=== PATIENT | male | born 1950 | race Caucasian/White ===

== ENCOUNTER → 2023-07-19 06:47 | Outpatient (REF) | payer MEDICARE, SELFPAY ==
[2023-07-19 09:33] LABS: Urine Protein 19 mg/dl (0-12)
[2023-07-22 00:30] LABS: 24 Hour Urine Total Volume Random mL; Urine Collection Length Random hr; Urine Free Kappa Light Chains 11.63 mg/L (0.00-32.90); Urine Free Lambda Light Chains 1.66 mg/L (0.00-3.79)
== END ==
LOC: REG 06:47
PROVIDERS: ATTENDING PHYSICIAN Internal Medicine; REFERRING PHYSICIAN Internal Medicine Hematology & Oncology
DX: D47.02 Systemic mastocytosis (principal); Z00.00 Encounter for general adult medical examination without abnormal findings; Z78.9 Other specified health status; D44.5 Neoplasm of uncertain behavior of pineal gland
CPT/HCPCS: 83521; 84156; 86335

== ENCOUNTER → 2023-08-01 08:37 | Outpatient (REF) | payer MEDICARE, SELFPAY | LOC: RAD 08:37 | PROVIDERS: ATTENDING PHYSICIAN Internal Medicine | DX: R09.89 Other specified symptoms and signs involving the circulatory and respiratory systems (principal) | CPT/HCPCS: 71046 ==

== ENCOUNTER → 2023-08-19 08:36 | Outpatient (REF) | payer MEDICARE, SELFPAY ==
[2023-08-19 11:47] LABS: Urine Protein 14 mg/dl (0-12)
[2023-08-19 13:08] LABS: 24 Hour Urine Total Volume 2000 ml
[2023-08-21 12:42] LABS: 24 Hour Urine Total Volume 2000 mL; Urine Collection Length 24 hr; Urine Free Kappa Excretion/Day 6.28 mg/d; Urine Free Kappa Light Chains 3.14 mg/L (0.00-32.90); Urine Free Lambda Light Chains <0.74 mg/L (0.00-3.79)
== END ==
LOC: REG 08:36
PROVIDERS: ATTENDING PHYSICIAN Internal Medicine; REFERRING PHYSICIAN Internal Medicine Hematology & Oncology
DX: D47.2 Monoclonal gammopathy (principal)
CPT/HCPCS: 81050; 83521; 84156; 86335

== ENCOUNTER → 2023-09-25 06:58 | Outpatient (REF) | payer MEDICARE, SELFPAY ==
[2023-09-25 07:35] LABS: % Basophils 1.3 % (0-2); % Eosinophils 2.5 % (0-6); % Immature Granulocytes 0.1 % (0-0.5); % Lymphocytes 32.5 % (20.5-51.1); % Neutrophils 57.6 % (42.2-75.2); Absolute Basophils 0.1 10^3/uL (0-0.2); Absolute Eosinophils 0.2 10^3/uL (0-0.7); Absolute Lymphocytes 2.2 10^3/uL (1.2-3.4); Absolute Monocytes 0.4 10^3/uL (0.1-0.6); Absolute Neutrophils 3.9 10^3/uL (1.4-6.5); Hematocrit 44.8 % (39.0-52.0); Hemoglobin 15.4 g/dL (13.0-18.0); Mean Corp Hgb Conc. 34.4 g/dL (33.0-37.0); Mean Corpuscular Hgb 32.2 pg (27.0-31.0); Mean Corpuscular Volume 93.5 fL (80.0-94.0); Nucleated Red Blood Cells % 0 % (-); Platelet Count 174 10^3/uL (130-400); Red Blood Cell Count 4.79 10^6/uL (4.70-6.10); Red Cell Dist. Width 12.9 % (11.5-14.5); White Blood Cell Count 6.8 10^3/uL (4.8-10.8)
[2023-09-25 09:50] LABS: ALT (SGPT) 27 U/L (0-50); AST (SGOT) 26 U/L (17-59); Albumin 4.1 g/dl (3.5-5.0); Alkaline Phosphatase 63 U/L (38-126); Blood Urea Nitrogen 29 mg/dl (9-20); Calcium 9.2 mg/dl (8.4-10.2); Carbon Dioxide 26 mmol/L (22-30); Chloride 109 mmol/L (98-107); Glucose 94 mg/dl (70-99); Potassium 4.2 mmol/L (3.5-5.1); Sodium 140 mmol/L (135-145); Total Bilirubin 0.4 mg/dl (0.2-1.3); Total Protein 7.1 g/dl (6.3-8.2); eGFR > 60.00
[2023-09-27 14:40] LABS: Albumin 3.85 g/dL (3.75-5.01); Alpha 1 Globulin 0.29 g/dL (0.19-0.46); Free Kappa Light Chains,Quant 81.12 mg/L (3.30-19.40); Free Lambda Light Chains,Quant 14.64 mg/L (5.71-26.30); IgA 125 mg/dL (68-408); IgG 1251 mg/dL (768-1632); IgM 45 mg/dL (35-263); Immunofixation Electrophoresis IFE Done; Kappa/Lambda Fr Light Ratio 5.54 (0.26-1.65)
== END ==
LOC: REG 06:58
PROVIDERS: ATTENDING PHYSICIAN Internal Medicine Hematology & Oncology; FAMILY PHYSICIAN Internal Medicine
DX: D47.2 Monoclonal gammopathy (principal)
CPT/HCPCS: 36415; 80053; 82784; 83521; 84155; 84165; 85025; 86334

== ENCOUNTER → 2023-09-26 12:22 | Outpatient (REF) | payer MEDICARE, SELFPAY | LOC: RAD 12:22 | PROVIDERS: ATTENDING PHYSICIAN Internal Medicine | DX: I10 Essential (primary) hypertension (principal); E78.5 Hyperlipidemia, unspecified; R09.89 Other specified symptoms and signs involving the circulatory and respiratory systems | CPT/HCPCS: 93922; 93925 ==

== ENCOUNTER → 2023-12-16 08:40 | Outpatient (REF) | payer MEDICARE, SELFPAY ==
[2023-12-16 10:40] LABS: ALT (SGPT) 29 U/L (0-50); AST (SGOT) 28 U/L (17-59); Alkaline Phosphatase 59 U/L (38-126); Blood Urea Nitrogen 32 mg/dl (9-20); Calcium 9.3 mg/dl (8.4-10.2); Carbon Dioxide 27 mmol/L (22-30); Glucose 112 mg/dl (70-99); Potassium 4.3 mmol/L (3.5-5.1); Sodium 142 mmol/L (135-145); Total Bilirubin 0.6 mg/dl (0.2-1.3); Total Protein 6.9 g/dl (6.3-8.2); eGFR > 60.00
[2023-12-16 10:46] LABS: Chloride 107 mmol/L (98-107)
[2023-12-16 10:57] LABS: Vitamin D, 25-OH*** 50.7 ng/mL (30-80)
[2023-12-16 11:24] LABS: Vitamin B12 482 pg/ml (239-931)
[2023-12-16 12:53] LABS: % Basophils 1.1 % (0-2); % Eosinophils 1.8 % (0-6); % Immature Granulocytes 0.1 % (0-0.5); % Lymphocytes 26.9 % (20.5-51.1); % Monocytes 6.4 % (1.7-9.3); % Neutrophils 63.7 % (42.2-75.2); Absolute Basophils 0.1 10^3/uL (0-0.2); Absolute Eosinophils 0.1 10^3/uL (0-0.7); Absolute Monocytes 0.5 10^3/uL (0.1-0.6); Absolute Neutrophils 4.6 10^3/uL (1.4-6.5); Hematocrit 42.5 % (39.0-52.0); Hemoglobin 14.7 g/dL (13.0-18.0); Mean Corp Hgb Conc. 34.6 g/dL (33.0-37.0); Mean Corpuscular Hgb 31.5 pg (27.0-31.0); Mean Corpuscular Volume 91.2 fL (80.0-94.0); Mean Platelet Volume 10.6 fL (7.4-10.4); Nucleated Red Blood Cells % 0 % (-); Platelet Count 174 10^3/uL (130-400); Red Blood Cell Count 4.66 10^6/uL (4.70-6.10); Red Cell Dist. Width 13.2 % (11.5-14.5); White Blood Cell Count 7.2 10^3/uL (4.8-10.8)
== END ==
LOC: REG 08:40
PROVIDERS: ATTENDING PHYSICIAN Internal Medicine
DX: E55.9 Vitamin D deficiency, unspecified (principal); E53.8 Deficiency of other specified B group vitamins; I10 Essential (primary) hypertension
CPT/HCPCS: 36415; 80053; 82306; 82607; 85025

== ENCOUNTER → 2024-03-02 10:38 | Outpatient (REF) | payer MEDICARE, SELFPAY ==
[2024-03-02 11:40] LABS: Blood Urea Nitrogen 26 mg/dl (9-20); Calcium 9.1 mg/dl (8.4-10.2); Carbon Dioxide 25 mmol/L (22-30); Chloride 103 mmol/L (98-107); Glucose 93 mg/dl (70-99); Potassium 3.9 mmol/L (3.5-5.1); Sodium 140 mmol/L (135-145); eGFR > 60.00
== END ==
LOC: REG 10:38
PROVIDERS: ATTENDING PHYSICIAN Internal Medicine
DX: Z79.899 Other long term (current) drug therapy (principal)
CPT/HCPCS: 36415; 80048

== ENCOUNTER 2024-04-27 16:16 | Emergency (ER) | payer MEDICARE, SELFPAY ==
[2024-04-27 16:20] VITALS: BP 143/66
[2024-04-27 16:25] VITALS: BMI 29.1
[2024-04-27 16:36] LABS: % Basophils 0.2 % (0-2); % Eosinophils 0.1 % (0-6); % Immature Granulocytes 0.2 % (0-0.5); % Lymphocytes 2.4 % (20.5-51.1); % Monocytes 2.7 % (1.7-9.3); % Neutrophils 94.4 % (42.2-75.2); Absolute Lymphocytes 0.2 10^3/uL (1.2-3.4); Absolute Monocytes 0.2 10^3/uL (0.1-0.6); Absolute Neutrophils 7.7 10^3/uL (1.4-6.5); Hematocrit 46.4 % (39.0-52.0); Hemoglobin 15.7 g/dL (13.0-18.0); Mean Corp Hgb Conc. 33.8 g/dL (33.0-37.0); Mean Corpuscular Hgb 31.5 pg (27.0-31.0); Mean Platelet Volume 9.4 fL (7.4-10.4); Nucleated Red Blood Cells % 0 % (-); Platelet Count 150 10^3/uL (130-400); Red Blood Cell Count 4.99 10^6/uL (4.70-6.10); Red Cell Dist. Width 13.2 % (11.5-14.5); White Blood Cell Count 8.2 10^3/uL (4.8-10.8)
[2024-04-27 16:51] LABS: ALT (SGPT) 30 U/L (0-50); AST (SGOT) 32 U/L (17-59); Albumin 4.1 g/dl (3.5-5.0); Alkaline Phosphatase 51 U/L (38-126); Blood Urea Nitrogen 33 mg/dl (9-20); Calcium 8.6 mg/dl (8.4-10.2); Carbon Dioxide 20 mmol/L (22-30); Chloride 105 mmol/L (98-107); Estimated Creatinine Clearance 57 ml/min; Glucose 132 mg/dl (70-99); Sodium 141 mmol/L (135-145); Total Bilirubin 0.8 mg/dl (0.2-1.3); Total Protein 7.2 g/dl (6.3-8.2); eGFR > 60.00
[2024-04-27 17:00] VITALS: BP 125/69
[2024-04-27 17:01] LABS: Troponin I < 0.012 ng/ml
[2024-04-27 18:00] VITALS: BP 166/86
[2024-04-27] MEDS: NSS 500 IV (18:10)
[2024-04-27 19:00] VITALS: BP 154/87
[2024-04-27 20:00] VITALS: BP 145/74
--- NOTE | 2024-04-27 20:05 | ED.GENMED ---
History of Present Illness
General
Chief Complaint: Breathing Problem
Source: patient and spouse
Time Seen by Provider: 04/27/24 17:50
History of Present Illness
History of Present Illness:
73-year-old male who presents feeling short of breath. Patient states that he developed sudden onset of vomiting and diarrhea today. He states that seem to get better. He then later started feel like he could not take a deep breath. He feels
like he just cannot get his breath. He is not sure if it is related to the illness or not. He denies cough. He does not necessarily feel out of breath but just feels like he 'cannot breathe'. No chest pain.
Past History
Past History
ED Past Medical History: HTN, Hypercholesterolemia and Other (Skin cancer, vertigo, bifascicular block)
ED Past Surgical History: Orthopedic
Social History
Personal:
Living: alone
Employment: Retired
Phy Exam
Physical Exam
Physical Exam:
CONSTITUTIONAL Patient alert and oriented to person, place and time. Well-appearing. Vital signs reviewed.
HEAD atraumatic, normocephalic.
EYES eyelids normal to inspection, Extraocular muscles intact, Conjunctiva normal, Sclera normal.
NECK normal range of motion, Trachea midline, no jugular venous distention.
RESPIRATORY CHEST No respiratory distress noted, Chest expansion equal, Bilateral breath sounds clear.
CARDIOVASCULAR regular rate and rhythm, Heart sounds normal.
ABDOMEN abdomen nontender, Bowel sounds normal. No distention.
BACK normal inspection, no obvious deformities
UPPER EXTREMITY range of motion normal, Motor strength normal, no cyanosis, no edema.
LOWER EXTREMITY range of motion normal, Motor strength normal, no cyanosis, no edema.
NEURO Speech normal, No focal motor deficits, [place] coma scale 15, Memory normal, Cranial Nerves intact to screening exam.
SKIN skin warm, dry, and normal in color.
Scores
Heart Failure Risk
Heart Failure Risk Score: Not Applicable
Course
Orders/Labs/Results
Orders:
Orders
04/27/24 16:18
Electrocardiogram (*1) Urgent
Reason for Study: Shortness of Breath
04/27/24 16:19
EKG- Treatment ONCE
04/27/24 16:30
Complete Blood Count/With Diff Urgent
Comprehensive Metabolic Panel Urgent
Troponin I Urgent
04/27/24 18:00
Chest [CR Chest - 2 Views ] Urgent
Comment:
Reason For Exam: shortness of breath
04/27/24 18:07
0.9% Sodium Chloride 500 ml [Nss] 500 ml IV BOLUS
Abnormal Lab Results
04/27/24
16:30
MCH 31.5 H pg
(27.0-31.0)
Absolute Neuts (auto) 7.7 H 10^3/uL
(1.4-6.5)
Absolute Lymphs (auto) 0.2 L 10^3/uL
(1.2-3.4)
Neutrophils % 94.4 H %
(42.2-75.2)
Lymphocytes % 2.4 L %
(20.5-51.1)
Carbon Dioxide 20 L mmol/L
(22-30)
BUN 33 H mg/dl
(9-20)
Glucose 132 H mg/dl
(70-99)
04/27/24 16:30
04/27/24 16:30
Vital Signs
Initial and Last Documented VS:
Initial Vital Signs
Temp Pulse Resp BP Pulse Ox
98.6 F 100 18 143/66 97
04/27/24 16:20 04/27/24 16:20 04/27/24 16:20 04/27/24 16:20 04/27/24 16:20
Last Documented Vital Signs
Temp Pulse Resp BP Pulse Ox
98.6 F 97 11 166/86 93
04/27/24 16:20 04/27/24 18:00 04/27/24 18:00 04/27/24 18:00 04/27/24 18:00
MDM/Problems Addressed
Differential Diagnosis Includes:
ND, COPD, pneumonia, aspiration pneumonia, electrolyte imbalance, anxiety, pulmonary embolism, arrhythmia
MDM/Problems Addressed:
Vomiting, diarrhea, dyspnea
*Radiology
Radiology exam reviewed: all reviewed NAD by ED Provider
*Pulse Oximetry
Patient hypoxic: no
*EKG
Interpreted by ED Provider?: Yes
Interpretation: abnormal
Rate: normal
Rhythm: sinus
QRS Pattern: left bundle branch block and right bundle branch block
Ischemia: non-specific ST changes
*Duck Farmer Interpretation
Rate: normal
Interpretation: normal
Rhythm: sinus
*Critical Care Note
Total Time (30-74mins, 75-104mins- exclusive of procedures): Not Applicable
Data Reviewed
Review of Other/Old Records Reveals: Other (Prior EKG reviewed)
Source: patient and spouse
Further Testing Considered But Not Given:
Consider CT with patient feels much better
Patient Management
Escalation/DeEscalation of care consider admission/obs:
On reassessment patient feels much better. Sitting in chair. Pulse ox 95% and heart rate 86. Given IV fluids. States he is ready for discharge to go home. Advised that he can return at any moment if he feels worse again.
ED Attending Note
-
Portions of this chart may have been created with voice recognition software.� Occasional wrong word or��sound alike� substitutions may have occurred due to the inherent limitations of voice recognition software.
Discharge Plan
Departure
Patient Disposition: Home (Routine Discharge)
Date of Disposition: 04/27/24
Time of Disposition: 20:18
Patient with high blood pressure during this ER visit?: Yes
Discharge Problem:
Vomiting, Acute dyspnea
Instructions: Shortness of Breath (Dyspnea) (DC)
Prescriptions:
No Action
atorvastatin 10 MG tablet
10 mg PO DAILY
losartan 50 MG tablet
100 mg PO DAILY
naproxen sodium [Aleve] 220 MG tablet
2 tablets PO PRN PRN (Reason: as directed)
hydrochlorothiazide 25 MG tablet
25 mg PO DAILY
acetaminophen [Tylenol Extra Strength] 500 MG tablet
1,000 mg PO Q6HPRN PRN (Reason: pain)
Referrals:
Melanie Troncoso MD [Family Provider] -
Activity Restrictions/Additional Instructions:
Please drink plenty of fluids advance diet slowly as discussed. Return immediately for chest pain, shortness of breath, palpitations, fevers or any other concerns. Please see your doctor in follow-up in the next 1 week.
Interventions
Interventions:
*Risk Screen - Suicide Last Done: 04/27/24 16:24
*General Assessment Last Done: 04/27/24 16:24
*Neglect/Abuse Screening Last Done: 04/27/24 16:24
ED- Fall Risk Assessment Last Done: 04/27/24 18:07
*ED COVID-19 Vaccine History Last Done: 04/27/24 16:24
ED- Cardiac Assessment Last Done: 04/27/24 17:00
ED- Pulmonary Assessment Last Done: 04/27/24 17:00
Discharge Date and Time
Print Language: CENTRAL AFRICAN
== END 2024-04-27 20:55 | disposition home or self-care (01) ==
LOC: EMR 16:16
PROVIDERS: Student in an Organized Health Care Education/Training Program; EMERGENCY PHYSICIAN Emergency Medicine; FAMILY PHYSICIAN Internal Medicine
DX: R06.09 Other forms of dyspnea (principal); R11.10 Vomiting, unspecified; I10 Essential (primary) hypertension
CPT/HCPCS: 99285; 71046; 80053; 84484; 85025; 93005

== ENCOUNTER 2024-05-29 16:20 | Emergency (ER) | payer MEDICARE, SELFPAY ==
[2024-05-29 16:40] VITALS: BP 160/89
[2024-05-29 17:11] LABS: % Basophils 0.5 % (0-2); % Eosinophils 1.5 % (0-6); % Immature Granulocytes 0.3 % (0-0.5); % Lymphocytes 15.4 % (20.5-51.1); % Monocytes 5.5 % (1.7-9.3); % Neutrophils 76.8 % (42.2-75.2); Absolute Basophils 0.1 10^3/uL (0-0.2); Absolute Eosinophils 0.2 10^3/uL (0-0.7); Absolute Lymphocytes 1.7 10^3/uL (1.2-3.4); Absolute Monocytes 0.6 10^3/uL (0.1-0.6); Absolute Neutrophils 8.4 10^3/uL (1.4-6.5); Hematocrit 42.1 % (39.0-52.0); Hemoglobin 14.8 g/dL (13.0-18.0); Mean Corp Hgb Conc. 35.2 g/dL (33.0-37.0); Mean Corpuscular Hgb 32.1 pg (27.0-31.0); Mean Corpuscular Volume 91.3 fL (80.0-94.0); Mean Platelet Volume 9.9 fL (7.4-10.4); Nucleated Red Blood Cells % 0 % (-); Platelet Count 171 10^3/uL (130-400); Red Blood Cell Count 4.61 10^6/uL (4.70-6.10); Red Cell Dist. Width 13.5 % (11.5-14.5); White Blood Cell Count 10.9 10^3/uL (4.8-10.8)
[2024-05-29 17:19] LABS: ALT (SGPT) 27 U/L (0-50); AST (SGOT) 27 U/L (17-59); Alkaline Phosphatase 66 U/L (38-126); Blood Urea Nitrogen 21 mg/dl (9-20); Calcium 9.2 mg/dl (8.4-10.2); Carbon Dioxide 30 mmol/L (22-30); Chloride 102 mmol/L (98-107); Glucose 100 mg/dl (70-99); Lipase 87 U/L (23-300); Potassium 4.1 mmol/L (3.5-5.1); Sodium 138 mmol/L (135-145); Total Bilirubin 0.6 mg/dl (0.2-1.3); Total Protein 7.1 g/dl (6.3-8.2); eGFR > 60.00
[2024-05-29 20:10] VITALS: BP 176/89
--- NOTE | 2024-05-29 22:23 | ED.GENMED ---
History of Present Illness
<Koko Da Silva PA-C - Last Filed: 06/01/24 11:07>
General
Chief Complaint: Abdominal Pain
Source: patient
Time Seen by Provider: 05/29/24 21:51
History of Present Illness
History of Present Illness:
73-year-old male with past medical history of hypertension and hyperlipidemia presenting to the emergency department for evaluation of 1-1/2 days of upper abdominal pain accompanied with nausea and diminished p.o. intake with pain described to be a
dull aching sensation with intermittent bursts of pain, currently more mild and without any other associated symptoms. Patient did not attempt any medications for relief prior to arrival. Denies any history of similar. Denies any chest pain,
shortness of breath, palpitations, diaphoresis, back or flank pain, urinary symptoms or bowel changes. He does note that he drank 1 beer the last 2 days as part of the holidays which she normally does not typically drink. Surgical history was
noncontributory.
Past History
<Koko Da Silva PA-C - Last Filed: 06/01/24 11:07>
Past History
ED Past Medical History: HTN, Hypercholesterolemia and Other (Skin cancer, vertigo, bifascicular block)
ED Past Surgical History: Orthopedic and Tonsilectomy
Social History
Tobacco: Non-smoker
Alcohol: Occasional
Drug: None
Personal:
Living: alone
Employment: Retired
Review of Systems
<Koko Da Sivla PA-C - Last Filed: 06/01/24 11:07>
Review of Systems
All Other Systems: ROS reviewed and negative except as documented in HPI and ROS
Phy Exam
<Koko Da Silva PA-C - Last Filed: 06/01/24 11:07>
Physical Exam
Physical Exam:
GENERAL: Alert , in no apparent distress
EYE: clear conjunctiva b/l
HEAD: NCAT
ENT: o/p clr, mmm.
CARDIAC: Regular rate and rhythm .
LUNGS: Clear breath sounds bilaterally, no acute respiratory distress, no wheezes/rales/rhonchi
ABDOMEN: Soft, mild epigastric and left upper quadrant tenderness s, no r/g, no cvat, negative Otero sign, no tenderness at McBurney's point
NEUROLOGICAL: Alert and oriented
SKIN: Warm and dry, skin intact.
MUSCULOSKELETAL: well perfused.
PSYCH: Normal and appropriate interaction.
Scores
<Koko Da Silva PA-C - Last Filed: 06/01/24 11:07>
Heart Failure Risk
Heart Failure Risk Score: Not Applicable
Heart Score for Chest Pain Patients
STEMI patient?: Not applicable
Withdrawal Assessment of Alcohol
Withdrawal Assessment Completed?: Not applicable
Course
<Koko Da Silva PA-C - Last Filed: 06/01/24 11:07>
Orders/Labs/Results
Orders:
Orders
05/29/24 16:53
Complete Blood Count/With Diff Urgent
Comprehensive Metabolic Panel Urgent
Lipase Urgent
05/29/24 21:54
Add On- LAB Urgent
Tests Added?: troponin
Electrocardiogram (*1) Urgent
Reason for Study: Abdominal Pain
CT Abd/pelvis W Iv Cont Urgent
Comment:
Reason For Exam: upper abd pain, leukocytosis
EKG- Treatment ONCE
05/29/24 23:32
Troponin I Urgent
05/30/24 01:25
Dicyclomine [Bentyl] 10 mg PO NOW STA
Abnormal Lab Results
05/29/24
16:53
WBC 10.9 H 10^3/uL
(4.8-10.8)
RBC 4.61 L 10^6/uL
(4.70-6.10)
MCH 32.1 H pg
(27.0-31.0)
Absolute Neuts (auto) 8.4 H 10^3/uL
(1.4-6.5)
Neutrophils % 76.8 H %
(42.2-75.2)
Lymphocytes % 15.4 L %
(20.5-51.1)
BUN 21 H mg/dl
(9-20)
Glucose 100 H mg/dl
(70-99)
05/29/24 16:53
05/29/24 16:53
Vital Signs
Initial and Last Documented VS:
Initial Vital Signs
Temp Pulse Resp BP Pulse Ox
98 F 70 18 160/89 98
05/29/24 16:40 05/29/24 16:40 05/29/24 16:40 05/29/24 16:40 05/29/24 16:40
Last Documented Vital Signs
Temp Pulse Resp BP Pulse Ox
97.9 F 63 18 161/89 94
05/29/24 23:37 05/30/24 01:45 05/30/24 01:45 05/30/24 01:45 05/30/24 01:45
<Kamla Sharma MD - Last Filed: 05/30/24 01:28>
Orders/Labs/Results
Orders:
Orders
05/29/24 16:53
Complete Blood Count/With Diff Urgent
Comprehensive Metabolic Panel Urgent
Lipase Urgent
05/29/24 21:54
Add On- LAB Urgent
Tests Added?: troponin
Electrocardiogram (*1) Urgent
Reason for Study: Abdominal Pain
CT Abd/pelvis W Iv Cont Urgent
Comment:
Reason For Exam: upper abd pain, leukocytosis
EKG- Treatment ONCE
05/29/24 23:32
Troponin I Urgent
05/30/24 01:25
Dicyclomine [Bentyl] 10 mg PO NOW STA
Abnormal Lab Results
05/29/24
16:53
WBC 10.9 H 10^3/uL
(4.8-10.8)
RBC 4.61 L 10^6/uL
(4.70-6.10)
MCH 32.1 H pg
(27.0-31.0)
Absolute Neuts (auto) 8.4 H 10^3/uL
(1.4-6.5)
Neutrophils % 76.8 H %
(42.2-75.2)
Lymphocytes % 15.4 L %
(20.5-51.1)
BUN 21 H mg/dl
(9-20)
Glucose 100 H mg/dl
(70-99)
05/29/24 16:53
05/29/24 16:53
Vital Signs
Initial and Last Documented VS:
Initial Vital Signs
Temp Pulse Resp BP Pulse Ox
98 F 70 18 160/89 98
05/29/24 16:40 05/29/24 16:40 05/29/24 16:40 05/29/24 16:40 05/29/24 16:40
Last Documented Vital Signs
Temp Pulse Resp BP Pulse Ox
97.9 F 63 18 161/89 94
05/29/24 23:37 05/30/24 01:45 05/30/24 01:45 05/30/24 01:45 05/30/24 01:45
<Koko Da Silva PA-C - Last Filed: 06/01/24 11:07>
MDM/Problems Addressed
Differential Diagnosis Includes:
GERD, gastritis, cholecystitis, appendicitis, atypical ACS presentation, pancreatitis
MDM/Problems Addressed:
73-year-old male presenting to the emergency department for evaluation of upper abdominal pain for the last day and a half accompanied with some nausea. Presently symptoms much more mildly. No acute distress. Abdominal exam reassuring but does
have tenderness within the epigastrium and left upper quadrant. Patient declining anything for pain. Given his age will obtain CT scan for further evaluation. I did add on a troponin and EKG to assess for any potential atypical ACS presentation.
<Koko Da Silva PA-C - Last Filed: 06/01/24 11:07>
*Pulse Oximetry
Patient hypoxic: no
*EKG
Interpreted by ED Provider?: Yes
Comparison EKG: no changes
Heart Rate: 62
Rate: normal
Rhythm: sinus
[place]: left axis deviation
QRS Pattern: right bundle branch block
*Critical Care Note
Total Time (30-74mins, 75-104mins- exclusive of procedures): Not Applicable
ED Attending Note
<Koko Da Silva PA-C - Last Filed: 06/01/24 11:07>
-
Portions of this chart may have been created with voice recognition software.� Occasional wrong word or��sound alike� substitutions may have occurred due to the inherent limitations of voice recognition software.
<Kamla Sharma MD - Last Filed: 05/30/24 01:28>
ED Attending Note
Patient seen and examined by attending physician: Yes
I performed the substantive portion of visit, reviewed & personally made and approve the management plan that is documented in note by myself or ANTON.: Yes
ED Attending Note:
CT (vision) trace peripancreatic stranig, may represent underlying pancreatitis (lipase is nl, however). No pseudocyst. No obstruction, nl gb and appendix.
Pt now describes intermittent 'crampy' upper abd pain, no cp, no sob, no v. Will rx benryl and recommend close f/u. Pt aware of import of fu and reason sto rted. Abd soft, nt, nd.
Discharge Plan
Departure
Patient Disposition: Home (Routine Discharge)
Date of Disposition: 05/30/24
Time of Disposition: 01:26
Patient with high blood pressure during this ER visit?: Yes
Condition: Good
Discharge Problem:
Abdominal pain
Instructions: Abdominal Pain, BLOOD PRESSURE
Prescriptions:
New
dicyclomine 10 mg capsule
10 mg PO TID PRN (Reason: pain) Qty: 11 0RF
No Action
atorvastatin 10 MG tablet
10 mg PO DAILY
losartan 50 MG tablet
100 mg PO DAILY
naproxen sodium [Aleve] 220 MG tablet
2 tablets PO PRN PRN (Reason: as directed)
hydrochlorothiazide 25 MG tablet
25 mg PO DAILY
acetaminophen [Tylenol Extra Strength] 500 MG tablet
1,000 mg PO Q6HPRN PRN (Reason: pain)
Referrals:
Melanie Troncoso MD [Family Provider] - Next open appointment
Activity Restrictions/Additional Instructions:
IF YOU DEVELOP INCREASING/NEW/PERSISTENT PAIN, VOMITING, FEVER, CHEST PAIN, OR OTHER WORRISOME SIGNS, GO TO THE ER IMMEDIATELY!
Interventions
Interventions:
*Risk Screen - Suicide Last Done: 05/29/24 20:10
*General Assessment Last Done: 05/29/24 20:10
*Neglect/Abuse Screening Last Done: 05/29/24 20:10
ED- Fall Risk Assessment Last Done: 05/29/24 23:30
*ED COVID-19 Vaccine History Last Done: 05/29/24 20:10
*Nursing Disposition Last Done: 05/30/24 01:45
QL-Beghyb-Jtpblncbiz Assessment Last Done: 05/29/24 23:30
Discharge Date and Time
Discharge Date/Time: 05/30/24 01:45
Print Language: ESTONIAN
[2024-05-29 23:37] VITALS: BP 178/94
[2024-05-30 00:16] VITALS: BP 176/76
[2024-05-30 00:16] LABS: Troponin I 0.031 ng/ml
[2024-05-30] MEDS: BENTYL 10 MG PO (01:39)
[2024-05-30 01:45] VITALS: BP 161/89
== END 2024-05-30 01:45 | disposition home or self-care (01) ==
LOC: EMR 16:20
PROVIDERS: Emergency Medicine; EMERGENCY PHYSICIAN Emergency Medicine; FAMILY PHYSICIAN Internal Medicine
DX: R10.10 Upper abdominal pain, unspecified (principal); R11.0 Nausea; R10.13 Epigastric pain; I10 Essential (primary) hypertension; E78.00 Pure hypercholesterolemia, unspecified; I45.2 Bifascicular block; Z85.828 Personal history of other malignant neoplasm of skin
CPT/HCPCS: 99284; 74177; 80053; 83690; 84484; 85025; 93005; Q9967

== ENCOUNTER → 2024-06-23 09:08 | Outpatient (REF) | payer MEDICARE, SELFPAY | LOC: HWRCS 09:08 | PROVIDERS: ATTENDING PHYSICIAN Student in an Organized Health Care Education/Training Program; FAMILY PHYSICIAN Internal Medicine | DX: I35.0 Nonrheumatic aortic (valve) stenosis (principal); I51.7 Cardiomegaly | CPT/HCPCS: 93306 ==

== ENCOUNTER → 2024-07-03 06:48 | Outpatient (REF) | payer MEDICARE, SELFPAY ==
[2024-07-03 07:30] LABS: % Basophils 1.1 % (0-2); % Eosinophils 2.8 % (0-6); % Immature Granulocytes 0.1 % (0-0.5); % Lymphocytes 30.9 % (20.5-51.1); % Neutrophils 58.1 % (42.2-75.2); Absolute Basophils 0.1 10^3/uL (0-0.2); Absolute Eosinophils 0.2 10^3/uL (0-0.7); Absolute Lymphocytes 2.3 10^3/uL (1.2-3.4); Absolute Monocytes 0.5 10^3/uL (0.1-0.6); Absolute Neutrophils 4.3 10^3/uL (1.4-6.5); Hematocrit 44.5 % (39.0-52.0); Hemoglobin 15.2 g/dL (13.0-18.0); Mean Corp Hgb Conc. 34.2 g/dL (33.0-37.0); Mean Corpuscular Hgb 31.5 pg (27.0-31.0); Mean Corpuscular Volume 92.1 fL (80.0-94.0); Mean Platelet Volume 9.7 fL (7.4-10.4); Nucleated Red Blood Cells % 0 % (-); Platelet Count 172 10^3/uL (130-400); Red Blood Cell Count 4.83 10^6/uL (4.70-6.10); Red Cell Dist. Width 13.1 % (11.5-14.5); White Blood Cell Count 7.4 10^3/uL (4.8-10.8)
[2024-07-03 08:12] LABS: ALT (SGPT) 27 U/L (0-50); AST (SGOT) 25 U/L (17-59); Alkaline Phosphatase 63 U/L (38-126); Blood Urea Nitrogen 29 mg/dl (9-20); Calcium 8.7 mg/dl (8.4-10.2); Carbon Dioxide 28 mmol/L (22-30); Chloride 104 mmol/L (98-107); Glucose 97 mg/dl (70-99); HDL Cholesterol 44 mg/dl; LDL Cholesterol, Calculated 61 mg/dl; Potassium 4.2 mmol/L (3.5-5.1); Sodium 142 mmol/L (135-145); Total Bilirubin 0.8 mg/dl (0.2-1.3); Total Cholesterol 133 mg/dl (50-199); Total Protein 7.4 g/dl (6.3-8.2); Triglyceride 144 mg/dl (10-149); Very Low Density Lipoprotein 28 mg/dl (0-30); eGFR 57.65
== END ==
LOC: REG 06:48
PROVIDERS: ATTENDING PHYSICIAN Student in an Organized Health Care Education/Training Program; FAMILY PHYSICIAN Internal Medicine; OTHER PHYSICIAN Internal Medicine Hematology & Oncology
DX: I35.0 Nonrheumatic aortic (valve) stenosis (principal); I12.9 Hypertensive chronic kidney disease with stage 1 through stage 4 chronic kidney disease, or unspecified chronic kidney disease
CPT/HCPCS: 36415; 80053; 80061; 85025

== ENCOUNTER → 2024-07-29 13:26 | Outpatient (REF) | payer MEDICARE, SELFPAY | LOC: RAD 13:26 | PROVIDERS: ATTENDING PHYSICIAN Internal Medicine | DX: R05.9 Cough, unspecified (principal); R06.02 Shortness of breath | CPT/HCPCS: 71046 ==

== ENCOUNTER → 2024-08-19 06:27 | Outpatient (REF) | payer MEDICARE, SELFPAY ==
[2024-08-19 07:14] LABS: % Basophils 0.2 % (0-2); % Eosinophils 0.8 % (0-6); % Immature Granulocytes 0.7 % (0-0.5); % Lymphocytes 22.6 % (20.5-51.1); % Monocytes 4.9 % (1.7-9.3); % Neutrophils 70.8 % (42.2-75.2); Absolute Eosinophils 0.1 10^3/uL (0-0.7); Absolute Immature Granulocytes 0.1 10^3/uL (0-0.05); Absolute Lymphocytes 2.9 10^3/uL (1.2-3.4); Absolute Monocytes 0.6 10^3/uL (0.1-0.6); Hematocrit 45.6 % (39.0-52.0); Hemoglobin 15.4 g/dL (13.0-18.0); Mean Corp Hgb Conc. 33.8 g/dL (33.0-37.0); Mean Corpuscular Hgb 30.7 pg (27.0-31.0); Mean Corpuscular Volume 90.8 fL (80.0-94.0); Mean Platelet Volume 9.9 fL (7.4-10.4); Nucleated Red Blood Cells % 0 % (-); Platelet Count 198 10^3/uL (130-400); Red Blood Cell Count 5.02 10^6/uL (4.70-6.10); Red Cell Dist. Width 13.6 % (11.5-14.5); White Blood Cell Count 12.7 10^3/uL (4.8-10.8)
[2024-08-19 07:32] LABS: Urine Albumin 2+ (Neg - Trace); Urine Bilirubin Negative (Negative); Urine Character Clear (Clear); Urine Color Yellow; Urine Glucose Negative (Negative); Urine Ketone Negative (Negative); Urine Leukocyte Negative (Negative); Urine Nitrite Negative (Negative); Urine Occult Blood Negative (Negative); Urine Urobilinogen Negative (Neg - 1+)
[2024-08-19 07:46] LABS: ALT (SGPT) 46 U/L (0-50); AST (SGOT) 26 U/L (17-59); Albumin 3.6 g/dl (3.5-5.0); Alkaline Phosphatase 66 U/L (38-126); Blood Urea Nitrogen 30 mg/dl (9-20); Calcium 9.2 mg/dl (8.4-10.2); Carbon Dioxide 29 mmol/L (22-30); Chloride 104 mmol/L (98-107); Glucose 82 mg/dl (70-99); Potassium 4.3 mmol/L (3.5-5.1); Sodium 139 mmol/L (135-145); Total Bilirubin 0.7 mg/dl (0.2-1.3); Total Protein 6.7 g/dl (6.3-8.2); eGFR 57.29
[2024-08-19 07:53] LABS: Vitamin D, 25-OH*** 52.9 ng/mL (30-80)
[2024-08-19 08:06] LABS: PSA, Total - Screen 1.23 ng/ml (0.0-4.0)
[2024-08-19 08:28] LABS: Microalbumin, Random Urine 13.4 mg/dl (0.6-1.7); Microalbumin/creatinine Ratio 125.5 mg/g
[2024-08-19 08:42] LABS: Folate 9.8 ng/ml (2.76-20); Vitamin B12 590 pg/ml (239-931)
[2024-08-19 10:00] LABS: Glycohemoglobin (HgbA1c) 5.4 % (4.0-5.6)
[2024-08-19 10:10] LABS: Urine Amorphous Seen
[2024-08-19 10:11] LABS: Urine Hyaline Cast 0-2 /LPF (0-2); Urine Red Blood Cell 0-2 /HPF (0-2); Urine White Cell 0-2 /HPF (0-5)
[2024-08-21 06:52] LABS: Homocysteine 10 umol/L (0-15)
[2024-08-22 06:15] LABS: Methylmalonic Acid 0.24 umol/L (0.00-0.40)
== END ==
LOC: REG 06:27
PROVIDERS: ATTENDING PHYSICIAN Internal Medicine Hematology & Oncology; FAMILY PHYSICIAN Internal Medicine; REFERRING PHYSICIAN Student in an Organized Health Care Education/Training Program
DX: Z00.00 Encounter for general adult medical examination without abnormal findings (principal); Z78.9 Other specified health status; E55.9 Vitamin D deficiency, unspecified; E78.5 Hyperlipidemia, unspecified; D50.9 Iron deficiency anemia, unspecified; I10 Essential (primary) hypertension; R82.90 Unspecified abnormal findings in urine; E53.8 Deficiency of other specified B group vitamins; M17.9 Osteoarthritis of knee, unspecified
CPT/HCPCS: 36415; 80053; 81003; 81015; 82043; 82306; 82570; 82607; 82746; 83036; 83090; 83921; 84403; 85025; 86140; G0103

== ENCOUNTER → 2024-09-03 06:22 | Outpatient (REF) | payer MEDICARE, SELFPAY ==
[2024-09-03 08:04] LABS: NT-proBNP 71.8 pg/ml
== END ==
LOC: REG 06:22
PROVIDERS: ATTENDING PHYSICIAN Internal Medicine
DX: R06.9 Unspecified abnormalities of breathing (principal)
CPT/HCPCS: 36415; 71046; 83880

== ENCOUNTER → 2024-09-09 11:15 | Outpatient (REF) | payer MEDICARE, SELFPAY | LOC: HWRCS 11:15 | PROVIDERS: ATTENDING PHYSICIAN Student in an Organized Health Care Education/Training Program; FAMILY PHYSICIAN Internal Medicine | DX: R06.09 Other forms of dyspnea (principal) | CPT/HCPCS: 78452; 93017; A9500; J2785 ==

== ENCOUNTER → 2024-09-29 06:29 | Outpatient (REF) | payer MEDICARE, SELFPAY ==
[2024-09-29 07:06] LABS: % Basophils 1.1 % (0-2); % Eosinophils 2.1 % (0-6); % Immature Granulocytes 0.3 % (0-0.5); % Lymphocytes 30.9 % (20.5-51.1); % Monocytes 5.9 % (1.7-9.3); % Neutrophils 59.7 % (42.2-75.2); Absolute Basophils 0.1 10^3/uL (0-0.2); Absolute Eosinophils 0.1 10^3/uL (0-0.7); Absolute Lymphocytes 1.9 10^3/uL (1.2-3.4); Absolute Monocytes 0.4 10^3/uL (0.1-0.6); Absolute Neutrophils 3.7 10^3/uL (1.4-6.5); Hematocrit 44.7 % (39.0-52.0); Hemoglobin 15.3 g/dL (13.0-18.0); Mean Corp Hgb Conc. 34.2 g/dL (33.0-37.0); Mean Corpuscular Hgb 31.5 pg (27.0-31.0); Mean Platelet Volume 9.7 fL (7.4-10.4); Nucleated Red Blood Cells % 0 % (-); Platelet Count 184 10^3/uL (130-400); Red Blood Cell Count 4.86 10^6/uL (4.70-6.10); Red Cell Dist. Width 13.6 % (11.5-14.5); White Blood Cell Count 6.2 10^3/uL (4.8-10.8)
[2024-09-29 07:46] LABS: ALT (SGPT) 33 U/L (0-50); AST (SGOT) 30 U/L (17-59); Albumin 4.1 g/dl (3.5-5.0); Alkaline Phosphatase 50 U/L (38-126); Blood Urea Nitrogen 29 mg/dl (9-20); Calcium 9.1 mg/dl (8.4-10.2); Carbon Dioxide 26 mmol/L (22-30); Chloride 108 mmol/L (98-107); Glucose 103 mg/dl (70-99); Potassium 4.3 mmol/L (3.5-5.1); Sodium 142 mmol/L (135-145); Total Bilirubin 0.7 mg/dl (0.2-1.3); Total Protein 7.2 g/dl (6.3-8.2); eGFR > 60.00
[2024-10-01 20:59] LABS: Albumin 3.65 g/dL (3.75-5.01); Alpha 2 Globulin 0.89 g/dL (0.48-1.05); Free Kappa Light Chains,Quant 82.21 mg/L (3.30-19.40); IgA 117 mg/dL (68-408); IgG 1557 mg/dL (768-1632); IgM 61 mg/dL (35-263); Immunofixation Electrophoresis IFE Done; Kappa/Lambda Fr Light Ratio 4.98 (0.26-1.65); Monoclonal Protein 1.08 g/dL (<=0.00); Total Protein-Electrophoresis 6.9 g/dL (6.3-8.2)
== END ==
LOC: REG 06:29
PROVIDERS: ATTENDING PHYSICIAN Internal Medicine Hematology & Oncology; FAMILY PHYSICIAN Internal Medicine; OTHER PHYSICIAN Student in an Organized Health Care Education/Training Program
DX: D47.2 Monoclonal gammopathy (principal)
CPT/HCPCS: 36415; 80053; 82784; 83521; 84155; 84165; 85025; 86334

== ENCOUNTER 2024-12-06 05:49 | Observation (INO) | payer MEDICARE, SELFPAY ==
[2024-12-06] VITALS (15 sets, daily range): BP systolic 132–169; BP diastolic 62–88; PULSE 67; O2SAT 95; BMI 38.8; BMI 41.6
--- NOTE | 2024-12-06 02:20 | ED.GENMED ---
History of Present Illness
General
Chief Complaint: Change in Mental Status
Source: patient and spouse
Exam Limitations: none
Time Seen by Provider: 12/06/24 02:11
History of Present Illness
History of Present Illness:
74yoM with a history of hypertension and hyperlipidemia presenting via EMS for evaluation of memory loss. Patient returned home from a 10-day trip to [place] on the evening of 12/04/2024. Patient went to bed this evening around 9:30 PM and was acting
normally. He woke up around 12:30 AM and was having difficulty sleeping. He decided to walk downstairs to the living room and his significant other went down with him. He started to question why there was luggage in the living room. He did not
remember that he was on a trip to [place] and did not remember the month. He states it feels like he is in a bad dream. He is otherwise asymptomatic and denies any headache, visual changes, dizziness, weakness, paresthesias, chest pain.
Past History
Past History
ED Past Medical History: HTN, Hypercholesterolemia and Other (Skin cancer, vertigo, bifascicular block)
ED Past Surgical History: Orthopedic and Tonsilectomy
Social History
Tobacco: Non-smoker
Alcohol: Occasional
Drug: None
Personal:
Living: alone
Employment: Retired
Phy Exam
General Physical Exam
General Presentation: well appearing and no apparent distress
General Skin: warm and dry
General Habitus: normal
General Mental: alert
ENT Exam
ENT Exam: normocephalic
Neurological Exam
Neurological Exam: alert, CN II-XII intact, no motor deficits, no sensory deficits, speech normal and other (Oriented to person and place. Not oriented to time. Does not recall why EMS was called. CN 2-12 intact. Negative drift x4. Normal
finger to nose and heel to bryan bilaterally. )
Skin Exam
Skin Exam: normal color and warm/dry
Psychiatric Exam
Psychiatric Exam: normal mood/affect
Scores
NIH Stroke Score
Level of Consciousness: 0 - Alert
LOC Questions: 1-Answers one correctly
LOC Commands: 0-Performs both correctly
Best Horizontal Gaze: 0-Normal
Visual [place]: 0=Normal, no visual loss
Facial Palsy: 0=Normal, symmetrical
Motor - Right Arm: 0=No drift 10 seconds
Motor - Left Arm: 0=No drift 10 seconds
Motor - Right Le-No drift 5 seconds
Motor - Left Le-No drift 5 seconds
Limb Ataxia: 0-Absent
Sensation: 0-Normal
Best Language: 0-No aphasia
Dysarthria: 0-Normal
Extinction and Inattention: 0-No abnormality
NIH Total Score:: 1
Course
Orders/Labs/Results
Orders:
Orders
12/06/24 02:19
Electrocardiogram (*1) Urgent
Reason for Study: Fatigue / Weakness
CT Head W/o Iv Contrast Urgent
Comment:
Reason For Exam: AMS
Cardiac Monitoring- Treatment ONCE
EKG- Treatment ONCE
12/06/24 02:30
Complete Blood Count/With Diff Urgent
Comprehensive Metabolic Panel Urgent
Troponin I Urgent
12/06/24 04:54
Aspirin Chewable [Low Strength Aspirin] 162 mg PO NOW STA
12/06/24 04:56
Admit/Transfer Patient As Directed
Co-Sign Provider:
Level of Care: Observation services
Assign to:: Telemetry
Physician / Group: Cheryl Dias
Diagnosis: transient global amnesia
Reason for Telemetry: CVA/TIA
Date to Stop Telemetry: 12/09/24
Time to Stop Telemetry: 11:00
PRN Pain Medication Management As Directed
May give lesser potent ordered pain med per pt: Yes
preference::
Protocol:: Medication orders for pain may be administered in a
manner that supports deferring to patient preference
when the pt is:
- Requesting an ordered lesser potent pain medication.
Least to most potent pain medications are defined
as: acetaminophen < NSAID < tramadol < opioids
(morphine, oxycodone, hydromorphone).
- Requesting a lesser dose of the same medication IF
ORDERED.
- Requesting a less intrusive route of administration
if both routes are prescribed by the provider (PO <
IV).
12/06/24 04:58
Code Status As Directed
Resuscitation Status: Full Code
12/06/24 05:36
Urinalysis Reflex To Culture Urgent
Date Specimen was Collected: 12/06/24
Time Specimen was Collected: 05:09
Urine Microscopic Reflex Cult Urgent
12/06/24 07:35
Acetaminophen [Tylenol/Feverall] 650 mg RECTAL Q4HPRN PRN
Acetaminophen [Tylenol] 1,000 mg PO Q6HPRN PRN pain
Acetaminophen [Tylenol] 650 mg PO Q4HPRN PRN
12/06/24 07:35
Case Management Consult ONCE
Case Management Consult: Discharge Planning
Comment: stroke/tia
DIETARY IP CONSULT Routine
Reason for Consult: stroke/TIA
NEUROLOGY CONSULT Urgent
Consulting Provider: Steven Vega
Was physician already notified: Yes
Heel Compressor Urgent
MR Brain Without Contrast Routine
Comment:
Reason For Exam: stroke/TIA
Recent pill cam endoscopy?: No
Activity As Directed
Activity Level: As Tolerated
NIH Stroke Scale As Directed
Directions: Per protocol
Comment: every shift and with any change in condition or mental status
Neurological Checks As Directed
Frequency: q4h
Additional Instructions:: q4h x 24h upon admission to the floor, then qshift & with any change in condition
and mental status
Patient Education As Directed
Type: Stroke education packet
Comment: provide to patient and family
Swallow Screening CVA/TIA ONLY As Directed
Comment: NPO until swallowing screening completed
If patient FAILS swallow screening:: NPO, Speech Therapy consult, Aspiration Precautions
If patient PASSES swallow screening, diet:: Cholesterol Lowering
Above diet order entered?: Yes- passed screening
Vital Signs As Directed
Frequency: Per unit guidelines
Ot Eval And Treat Routine
Pt Eval And Treat Routine
Activity Level: As Tolerated
Speech Therapy Eval & Treat Routine
DX Deep Vein Thrombosis Video Routine
12/06/24 07:57
Glycohemoglobin (HgbA1c) Routine
12/06/24 08:00
Atorvastatin [Lipitor] 10 mg PO DAILY
Hydrochlorothiazide [Oretic] 25 mg PO DAILY
Losartan [Cozaar] 100 mg PO DAILY
12/06/24 18:00
Enoxaparin Sodium [Lovenox] 40 mg SC QPM
12/07/24 06:00
Cardiovascular Evaluation IN AM
12/07/24 08:00
Aspirin Chewable [Low Strength Aspirin] 81 mg PO DAILY
12/09/24 11:00
DC Protocol for Telemetry ONCE
Abnormal Lab Results
12/06/24 12/06/24
02:30 05:36
RBC 4.37 L 10^6/uL
(4.70-6.10)
MCH 31.8 H pg
(27.0-31.0)
Chloride 112 H mmol/L
(98-107)
BUN 29 H mg/dl
(9-20)
Urine Albumin (Reflex) 1+ A
(Neg - Trace)
12/06/24 02:30
12/06/24 02:30
Vital Signs
Initial and Last Documented VS:
Initial Vital Signs
Pulse Resp Pulse Ox
73 11 98
12/06/24 01:58 12/06/24 01:58 12/06/24 01:58
Last Documented Vital Signs
Temp Pulse Resp BP Pulse Ox
98.5 F 64 20 169/62 95
12/06/24 07:30 12/06/24 07:30 12/06/24 07:30 12/06/24 07:30 12/06/24 07:30
MDM/Problems Addressed
Differential Diagnosis Includes:
74yoM here with acute memory loss that began this evening. Recently returned from a trip to [place]. Does not remember going on the trip. Came in by EMS but does not remember the ambulance ride or why he is here. No other complaints. NIHSS is 1 due
to patient being unable to recall the year. No other deficits noted. Differential diagnosis includes: transient global amnesia vs. CVA
Initial ED plan: Check cardiac labs, EKG, and CT head. Patient not a TNK candidate due to low NIH score.
*Pulse Oximetry
SaO2: 97
Oxygen Mode of Delivery: Room air
Patient hypoxic: no (98%)
*EKG
Interpreted by ED Provider?: Yes
EKG Intrepretation Date: 12/06/24
Heart Rate: 63
Rate: normal
Rhythm: sinus
[place]: left axis deviation
QRS Pattern: right bundle branch block
Ischemia: no ischemia
*Critical Care Note
Total Time (30-74mins, 75-104mins- exclusive of procedures): Not Applicable
Update Note
Update Note:
Labs unremarkable. Preliminary [facility] radiology report is negative for acute findings. He continues to have memory loss and does not recall going to CT. Will admit for further management.
ED Attending Note
-
Portions of this chart may have been created with voice recognition software.� Occasional wrong word or��sound alike� substitutions may have occurred due to the inherent limitations of voice recognition software.
Discharge Plan
Departure
Patient Disposition: Admit
Date of Disposition: 12/06/24
Time of Disposition: 03:37
Presentation/result/management discussed w/ accepting MD/DO: Hospitalist
Discharge Problem:
Amnesia
Interventions
Interventions:
*Risk Screen - Suicide Last Done: 12/06/24 02:08
*General Assessment Last Done: 12/06/24 02:09
*Neglect/Abuse Screening Last Done: 12/06/24 02:10
*ED- Fall Risk Assessment Last Done: 12/06/24 02:10
*ED COVID-19 Vaccine History Last Done: 12/06/24 02:10
*Nursing Disposition Last Done: 12/06/24 07:18
ED- Pulmonary Assessment Last Done: 12/06/24 06:00
ED-Psychological Assessment Last Done: 12/06/24 04:30
ED- Neurological Assessment Last Done: 12/06/24 02:12
ED- Cardiac Assessment Last Done: 12/06/24 06:00
ED Swallowing Screen Last Done: 12/06/24 02:55
Discharge Date and Time
Discharge Date/Time: 12/06/24 07:19
[2024-12-06 02:38] LABS: Hematocrit 40.8 % (39.0-52.0); Hemoglobin 13.9 g/dL (13.0-18.0); Mean Corp Hgb Conc. 34.1 g/dL (33.0-37.0); Mean Corpuscular Volume 93.4 fL (80.0-94.0); Nucleated Red Blood Cells % 0 % (-); Platelet Count 147 10^3/uL (130-400); Red Cell Dist. Width 13.2 % (11.5-14.5)
[2024-12-06 02:43] LABS: Glucose - Point of Care 91 mg/dl (70-99)
[2024-12-06 03:04] LABS: ALT (SGPT) 29 U/L (0-50); AST (SGOT) 29 U/L (17-59); Albumin 3.7 g/dl (3.5-5.0); Alkaline Phosphatase 56 U/L (38-126); Blood Urea Nitrogen 29 mg/dl (9-20); Calcium 8.6 mg/dl (8.4-10.2); Carbon Dioxide 24 mmol/L (22-30); Chloride 112 mmol/L (98-107); Estimated Creatinine Clearance 78 ml/min; Glucose 93 mg/dl (70-99); Potassium 3.8 mmol/L (3.5-5.1); Sodium 142 mmol/L (135-145); Total Protein 6.7 g/dl (6.3-8.2); eGFR > 60.00
[2024-12-06 03:16] LABS: Troponin I 0.019 ng/ml
--- NOTE | 2024-12-06 04:42 | HPS.HSE ---
Family Physician
-
Family Physician: Melanie Troncoso
Chief Complaint
-
memory loss
History of Present Illness
Mr. Krzysztof Sandoval is a 74 yo man with hx essential HTN, HLD presents to the ER with memory loss.
Patient just returned from a 10 day trip to [place] evening of 12/04/24. He went to bed this evening [place] [facility] [place]30 [place]. When he woke up in the middle of the night, he came down to the living room with his significant other. When he saw luggage he
questioned why it was there and could not remember this trip.
Patient doesn't remember coming to the ER or going to CT scan. During my interview he remembered going [place] a glac[place] on his trip which is new. He denies any numbness or weakness in arms/legs. No facial droop. Per , he felt beginnings of a URI
with mild throat congestion yesterday and took a Mucinex. No fevers/chills. No cough. He denies chest pain or shortness of breath.
Medical History
Past Medical History
Past Medical History: Reports HTN and Hypercholesterolemia
Past Surgical History: Reports Orthopedic and Tonsilectomy
Social History
Tobacco: Non-smoker
Alcohol: Occasional
Family History
Family History: Not pertinent
Allergies / Home Medications
Allergies reflects when Allergies were last updated in [email or web address].
Home Medications with original date entered in [email or web address]
Allergy/Medication List:
Allergies
Allergy/AdvReac Type Severity Reaction Status Date / Time
No Known Allergies Allergy Verified 04/27/24 16:19
Home Medications
atorvastatin 10 mg tablet 10 mg PO DAILY 12/15/14
hydrochlorothiazide 25 mg tablet 25 mg PO DAILY 07/08/17
losartan 50 mg tablet 100 mg PO DAILY 07/08/17
naproxen sodium 220 mg tablet (Aleve) 2 tablets PO PRN PRN as directed 07/08/17
acetaminophen 500 mg tablet (Tylenol Extra Strength) 1,000 mg PO Q6HPRN PRN pain 01/17/21
dicyclomine 10 mg capsule 10 mg PO TID PRN pain #11 caps 05/30/24
Review of Systems
-
History Source: Patient
A 12 point ROS was completed and negative except as noted: Yes
Physical Exam
Vital Signs
Vital Signs
Temp Pulse Resp BP Pulse Ox
97.8 F 64 10 149/62 98
12/06/24 01:59 12/06/24 02:49 12/06/24 02:30 12/06/24 02:04 12/06/24 02:30
Physical Exam
General: No Apparent Distress
HEENT: PERRLA
Respiratory: Clear; No Wheezes
Cardiac: S1/S2 and Regular Rhythm
GI: Soft, Non Tender and Non Distended
Musculoskeletal: No Edema
Skin: Warm and Dry; No Rash
Neuro: Awake, Alert and Oriented (thought year was 2025; knew he was in a hospital and that it was December )
Psych: Calm
Laboratory Results
-
12/06/24 02:30
12/06/24 02:30
Laboratory Results
Total Bilirubin 0.7 mg/dl (0.2-1.3) 12/06/24 02:30
AST 29 U/L (17-59) 12/06/24 02:30
ALT 29 U/L (0-50) 12/06/24 02:30
Alkaline Phosphatase 56 U/L (38-126) 12/06/24 02:30
Troponin I 0.019 ng/ml 12/06/24 02:30
Data Reviewed
-
Diagnostic Radiology: Report Reviewed by me
Lab Data: Labs Reviewed by me
Impression/Plan
-
Mr. Krzysztof Sandoval is a 74 yo man with hx essential HTN, HLD presents to the ER with acute memory loss after a 10 day trip. No other focal neurological deficits on exam. Memory starting to return, likely transient global amnesia.
Triage VS: T 97.8, P 73, RR 11, SpO2 98%
LABS: WBC 6.7, Hg 13.9, PLT 147, Na 142, K+ 3.8, CO2 24, Cr 1.1, liver enzymes WNL, Trop 0.[address] - no acute intracranial hemorrhage
Acute memory loss, likely transient global amnesia
-admit to telemetry
-start aspirin now
-MRI
-Neurology consult
-PT/OT/ST
Essential HTN
-AUTOMOBILE SERVICE STATION MECHANIC Losartan, HCTZ
HLD
-AUTOMOBILE SERVICE STATION MECHANIC Statin
DVT PPx - Lovenox subQ
FULL CODE
[2024-12-06] MEDS: LOW STRENGTH ASPIRIN 162 MG PO (05:12)
[2024-12-06 05:54] LABS: Urine Character Clear (Clear)
[2024-12-06 06:05] LABS: Urine Red Blood Cell 0-2 /HPF (0-2); Urine White Cell None Seen /HPF (0-5)
[2024-12-06] MEDS: COZAAR 100 MG PO (08:59)
[2024-12-06] MEDS: ORETIC 25 MG PO (08:59)
[2024-12-06] MEDS: LIPITOR 10 MG PO (08:59)
[2024-12-06 10:26] LABS: Glycohemoglobin (HgbA1c) 5.1 % (4.0-5.6)
--- NOTE | 2024-12-06 10:59 | PTOTSP ---
Speech therapy
Presentation: Patient is oriented and participatory. Patient's speech and language is WNL during conversation. Patient stated that he does not recall any of the events leading up to his hospitalization, including his recent trip to [place] with
family.
Swallowing Function: DISTRICT BRANCH MANAGER observed patient with patient's meal tray (reg/ thin) in which patient appeared to tolerate regular consistency solids and sips (cup) of thin liquids as he did not exhibit any overt clinical s/sx of aspiration or difficulty
with mastication/ manipulation. Patient denied any dysphagia complaints.
Per RN, patient tolerated medications whole with thin liquids.
Recommendations:
1) reg/ thin
2) aspiration precautions
3) medications as tolerated
4) consideration of speech/ cognitive evaluation
Plan: DISTRICT BRANCH MANAGER will continue to follow to ensure tolerance; pending hospitalization.
--- NOTE | 2024-12-06 11:44 | W.PN.UPDATE ---
Update Note
Progress Note Update
Nonbillable note
General: No Apparent Distress
HEENT: PERRLA
Respiratory: Clear; No Wheezes
Cardiac: S1/S2 and Regular Rhythm
GI: Soft, Non Tender and Non Distended
Musculoskeletal: No Edema
Skin: Warm and Dry; No Rash
Neuro: Awake, Alert and Oriented
Psych: Calm
Acute memory loss, likely transient global amnesia
Monitor on telemetry
Continue with aspirin
MRI pending
Neurology evaluation
PT
Seen by speech, okay for regular
A1c 5.1; lipid profile
Essential HTN
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
HLD
-AFTER SCHOOL TEACHER Statin
DVT PPx - Lovenox subQ
FULL CODE
[2024-12-06] MEDS: ATIVAN 0.5 MG PO (12:58)
[2024-12-06] MEDS: LOVENOX 40 MG SC (17:13)
--- NOTE | 2024-12-06 22:12 | CON.NEURO ---
Neuro Assessment/Plan
Assessment
head CT normal
transient global amnesia, no new memories made during the event, some retrograde amnesia can be associated which have resolved.
discussed that this could be a plumbing problem or an electrical problem or it's own thing; rarely recurs
MRI and EEG for completeness though we almost never find anything.
Consultation
Order
Date of Consultation: 12/06/24
Requesting Provider: Cheryl Dias
Reason for Consult: transient global amnesia
Subjective/Objective
Subjective Data
Date of Service: December 06, 2024
from h&p
Mr. Krzysztof Sandoval is a 74 yo man with hx essential HTN, HLD presents to the ER with memory loss.
Patient just returned from a 10 day trip to [place] evening of 12/04/24. He went to bed this evening in [facility] [place] at 9:30 PM. When he woke up in the middle of the night, he came down to the living room with his significant other. When he saw luggage he
questioned why it was there and could not remember this trip.
Patient doesn't remember coming to the ER or going to CT scan. During my interview he remembered going to a glac[place] on his trip which is new. He denies any numbness or weakness in arms/legs. No facial droop. Per , he felt beginnings of a URI
with mild throat congestion yesterday and took a Mucinex. No fevers/chills. No cough. He denies chest pain or shortness of breath.
spoke with him and his who both feel his symptoms are now fully resolved
Objective Data
Vital Signs
Temp Pulse Resp BP Pulse Ox
36.6 C 63 19 155/85 97
12/06/24 19:39 12/06/24 19:39 12/06/24 19:39 12/06/24 19:39 12/06/24 19:39
Lab Results
12/06/24 02:30
12/06/24 02:30
Sodium 142 mmol/L (135-145) 12/06/24 02:30
Potassium 3.8 mmol/L (3.5-5.1) 12/06/24 02:30
BUN 29 mg/dl (9-20) H 12/06/24 02:30
Glucose 93 mg/dl (70-99) 12/06/24 02:30
Calcium 8.6 mg/dl (8.4-10.2) 12/06/24 02:30
Patient Allergies
No Known Allergies Allergy (Verified 04/27/24 16:19)
Physical Exam
-
VFF, EOMI, face symmetric
full strength, no pronator drift
sensation intact to touch/pin
Medications
-
Active Medications
Generic Name Dose Route Start Last Admin
Trade Name Freq PRN Reason Stop Dose Admin
Acetaminophen 650 mg 12/06/24 07:35
Acetaminophen 650 Mg Rectal Suppository RECTAL 01/03/25 07:34
Q4HPRN PRN
MILLER, mild pain, or temp >100.4F
Acetaminophen 650 mg 12/06/24 07:35
Acetaminophen 325 Mg Tablet PO 01/03/25 07:34
Q4HPRN PRN
MILLER, mild pain, or temp >100.4F
Aspirin 81 mg 12/07/24 08:00
Aspirin 81 Mg Chewable Tablet PO 01/04/25 07:59
DAILY JALIL
Atorvastatin Calcium 10 mg 12/06/24 08:00 12/06/24 08:59
Atorvastatin (Lipitor) 10 Mg Tablet PO 01/03/25 07:59 10 mg
DAILY JALIL Administration
Enoxaparin Sodium 40 mg 12/06/24 18:00 12/06/24 17:13
Enoxaparin Sodium 40 Mg/0.4 Ml Syringe SC 01/03/25 17:59 40 mg
QPM JALIL Administration
Hydralazine HCl 5 mg 12/06/24 21:30
Hydralazine 20 Mg/Ml Vial IV 01/03/25 21:29
Q6HPRN PRN
SBP>160
Hydrochlorothiazide 25 mg 12/06/24 08:00 12/06/24 08:59
Hydrochlorothiazide 25 Mg Tablet PO 01/03/25 07:59 25 mg
DAILY JALIL Administration
Lorazepam 0.5 mg 12/06/24 09:34 12/06/24 12:58
Lorazepam 0.5 Mg Tablet PO 01/03/25 09:33 0.5 mg
ONCE PRN PRN Administration
prior to MRI
Losartan Potassium 100 mg 12/06/24 08:00 12/06/24 08:59
Losartan 50 Mg Tablet PO 01/03/25 07:59 100 mg
DAILY JALIL Administration
Sodium Chloride 0 flush 12/06/24 08:00
Sodium Chloride 0.9% (Flush) Syringe IV 01/03/25 07:59
PER PROTOCOL JALIL
Home Medications
�Medication �Instructions �Recorded
atorvastatin 10 mg tablet 10 mg PO DAILY 12/15/14
hydrochlorothiazide 25 mg tablet 25 mg PO DAILY 07/08/17
losartan 50 mg tablet 100 mg PO DAILY 07/08/17
naproxen sodium 220 mg tablet 2 tablets PO PRN PRN as directed 07/08/17
(Aleve)
acetaminophen 500 mg tablet 1,000 mg PO Q6HPRN PRN pain 01/17/21
(Tylenol Extra Strength)
dicyclomine 10 mg capsule 10 mg PO TID PRN pain #11 caps 05/30/24
[2024-12-07 03:17] VITALS: BP 159/85
[2024-12-07 07:23] LABS: Hematocrit 40.8 % (39.0-52.0); Hemoglobin 13.9 g/dL (13.0-18.0); Mean Corp Hgb Conc. 34.1 g/dL (33.0-37.0); Mean Corpuscular Volume 92.3 fL (80.0-94.0); Nucleated Red Blood Cells % 0 % (-); Platelet Count 151 10^3/uL (130-400); Red Cell Dist. Width 13.3 % (11.5-14.5)
[2024-12-07 07:35] VITALS: BP 162/84
[2024-12-07 08:00] LABS: Blood Urea Nitrogen 26 mg/dl (9-20); Calcium 9.0 mg/dl (8.4-10.2); Carbon Dioxide 26 mmol/L (22-30); Chloride 112 mmol/L (98-107); Estimated Creatinine Clearance 74 ml/min; Glucose 85 mg/dl (70-99); HDL Cholesterol 35 mg/dl; LDL Cholesterol, Calculated 43 mg/dl; Potassium 3.8 mmol/L (3.5-5.1); Sodium 141 mmol/L (135-145); Very Low Density Lipoprotein 25 mg/dl (0-30); eGFR > 60.00
[2024-12-07] MEDS: COZAAR 100 MG PO (08:04)
[2024-12-07] MEDS: LIPITOR 10 MG PO (08:05)
[2024-12-07] MEDS: LOW STRENGTH ASPIRIN 81 MG PO (08:05)
[2024-12-07] MEDS: ORETIC 25 MG PO (08:05)
--- NOTE | 2024-12-07 08:25 | W.PN.NEURO.1 ---
Today's Communication / Plan
-
No indication for EEG at this time unless the patient's symptoms continue or worsen.
Neuro Assessment/Plan
Assessment
head CT normal
transient global amnesia, no new memories made during the event, some retrograde amnesia can be associated which have resolved.
MRI
Plan
No indication for EEG at this time unless the patient's symptoms continue or worsen.
Will follow as needed
Subjective/Objective
Subjective Data
Date of Service: December 07, 2024
Objective Data
Vital Signs
Temp Pulse Resp BP Pulse Ox
36.4 C 60 16 162/84 95
12/07/24 07:35 12/07/24 08:05 12/07/24 07:35 12/07/24 08:05 12/07/24 08:16
Lab Results
12/07/24 06:24
12/07/24 06:24
Sodium 141 mmol/L (135-145) 12/07/24 06:24
Potassium 3.8 mmol/L (3.5-5.1) 12/07/24 06:24
BUN 26 mg/dl (9-20) H 12/07/24 06:24
Glucose 85 mg/dl (70-99) 12/07/24 06:24
Calcium 9.0 mg/dl (8.4-10.2) 12/07/24 06:24
LDL Cholesterol, Calc 43 mg/dl 12/07/24 06:24
Patient Allergies
No Known Allergies Allergy (Verified 04/27/24 16:19)
Data Reviewed
-
MRI Head: Report Reviewed
Labs: Report Reviewed
Reviewed with: Physician
Old Records: Summarized
Past History
Past History
ED Past Medical History: HTN, Hypercholesterolemia and Other (Skin cancer, vertigo, bifascicular block)
ED Past Surgical History: Orthopedic and Tonsilectomy
Social History
Tobacco: Non-smoker
Alcohol: Occasional
Drug: None
Personal:
Living: alone
Employment: Retired
[2024-12-07] MEDS: NORVASC 5 MG PO (10:34)
--- NOTE | 2024-12-07 10:38 | W.PN.HOSP.TC ---
Today's Communication/Plan
-
monitor vitals
see plan
Discussed with neurology, DC today
Continue aspirin
Start amlodipine along with his HCTZ and losartan
Time of Discharge 37 minutes
Assessment / Plan
Assessment / Plan
General: No Apparent Distress
HEENT: PERRLA
Respiratory: Clear; No Wheezes
Cardiac: S1/S2 and Regular Rhythm
GI: Soft, Non Tender and Non Distended
Musculoskeletal: No Edema
Skin: Warm and Dry; No Rash
Neuro: Awake, Alert and Oriented
Psych: Calm
Acute memory loss, likely transient global amnesia
Monitor on telemetry
Continue with aspirin
Neurology following
MRI with possible transient global amnesia. Slight compression of the left anterior spinal cord at C4-C5 level. This was discussed with patient and he will follow-up with primary care provider outpatient for possible MRI. Currently denies any,
numbness.
Seen by speech, okay for regular
A1c 5.1; lipid profile
Discussed with Dr. Mccray from neurology, no EEG needed
Essential HTN
-HOUSEKEEPING ASSOCIATE Losartan, HCTZ, blood pressure still elevated. Start amlodipine. Patient instructed to follow-up with primary care provider
HLD
-HOUSEKEEPING ASSOCIATE Statin
DVT PPx - Lovenox subQ
FULL CODE
Anticipated Discharge: Today
Subjective/Interval History
-
Date of Service: December 07, 2024
Denies headache
Objective Data
-
Labs:
Laboratory Results
12/07/24
06:24
WBC 6.0
Hgb 13.9
Hct 40.8
Plt Count 151
Sodium 141
Potassium 3.8
Chloride 112 H
Carbon Dioxide 26
BUN 26 H
Creatinine 1.1
Glucose 85
Calcium 9.0
Vital Signs:
Vital Signs
Temp Pulse Resp BP Pulse Ox
97.5 F 60 16 162/84 95
12/07/24 07:35 12/07/24 10:34 12/07/24 07:35 12/07/24 10:34 12/07/24 08:16
I&O
12/06/24 12/07/24 12/08/24
06:59 06:59 06:59
Intake Total 1200 / 1200
Balance 1200 / 1200
--- NOTE | 2024-12-07 10:48 | W.DCSUMMARY ---
Discharge Summary
Discharge Data
Date of Admission: 12/06/24
Date of Discharge: 12/07/24
-
Pending Results: No
Hospital Course
74-year-old male with past medical history of essential hypertension, hyperlipidemia came to the hospital with acute memory loss concerning for transient global amnesia. Patient was seen by neurology throughout hospitalization. CT scan was
negative for acute CVA. MRI did show signs of possible transient global amnesia. Patient also had slight compression of the left anterior spinal cord at C4-C5 level for which she was instructed to follow-up closely with PCP and spine physician
outpatient for possible MRI of C-spine. He denied any numbness. Restraints global amnesia, he was put on baby aspirin which was continued on discharge. He was instructed to follow-up with neurology outpatient. He also had elevated blood pressure
for which he was started on amlodipine along with his home losartan and hydrochlorothiazide. He was instructed to monitor his blood pressure twice daily on discharge. Once his symptoms continue to improve, he was then discharged home with
instructions to follow-up with all his physicians outpatient.
Discharge Plan
-
Patient Disposition: Home (Routine Discharge)
Discharge Diagnosis/Procedures: Transient global amnesia
Hypertension
Slight compression of the left anterior spinal cord at C4-C5 level
Condition: Good
Diet: As tolerated
Activity: With assistance
Driving Restrictions: As prior to admission
Others Tests: MRI of cervical spine with primary care provider
Activity Restrictions/Additional Instructions:
Check your blood pressure twice daily and follow-up with your primary care provider
Referrals:
Melanie Troncoso MD [Family Provider, Internal Medicine] - in less than 1 week
Jose D Mccray MD [Active, Neurology] - in three to four days
Duane Armstrong MD [Active, Orthopedics]
Prescriptions:
New
aspirin 81 mg Tablet,Chewable
81 mg PO DAILY Qty: 30 0RF
amlodipine 5 mg Tablet
5 mg PO DAILY Qty: 30 0RF
Continued
atorvastatin 10 MG tablet
10 mg PO DAILY
losartan 50 MG tablet
100 mg PO DAILY
naproxen sodium [Aleve] 220 MG tablet
2 tablets PO PRN PRN (Reason: as directed)
hydrochlorothiazide 25 MG tablet
25 mg PO DAILY
acetaminophen [Tylenol Extra Strength] 500 MG tablet
1,000 mg PO Q6HPRN PRN (Reason: pain)
dicyclomine 10 mg capsule
10 mg PO TID PRN (Reason: pain) Qty: 11 0RF
Discharge Orders:
Discharge Patient (As Directed); Ordered 12/07/24
Ordered By: Roque Gutiérrez
Discharge Date and Time
Discharge Date/Time: 12/07/24 11:59
Print Language: MOROCCAN
[2024-12-07 11:15] VITALS: BP 158/85
--- NOTE | 2024-12-07 11:36 | CM ---
Patient seen at bedside
VALENTIN form explained & signed. In chart
IA completed
Lives with significant other in 2 story home, no DAVID, 12 steps to bed/bath, powder room on 1st floor
PLOF: Independent no assistive device, drives
DME: Cane, walker
Denies VN/[facility] acute in past
PT rec [facility] vs, no needs
PCP: Melanie Troncoso
Pharmacy: [facility]
PLAN: Home, declines VN
significant other transport
== END 2024-12-07 11:59 | disposition home or self-care (01) ==
LOC: 4 EAST ACU 05:49
PROVIDERS: Physician Assistant; ADMITTING PHYSICIAN Student in an Organized Health Care Education/Training Program; ATTENDING PHYSICIAN Internal Medicine; CONSULT PHYSICIAN Psychiatry & Neurology Clinical Neurophysiology; EMERGENCY PHYSICIAN Emergency Medicine; FAMILY PHYSICIAN Internal Medicine
DX: G45.4 Transient global amnesia (principal); I10 Essential (primary) hypertension; E78.00 Pure hypercholesterolemia, unspecified; G95.29 Other cord compression; Z85.828 Personal history of other malignant neoplasm of skin
CPT/HCPCS: 70450; 70551; 80048; 80053; 80061; 81003; 81015; 82962; 83036; 84484; 85025; 92610; 93005; 97116; 97162; 97166; 99285; G0378

== ENCOUNTER 2024-12-31 08:58 | Outpatient (RCR) | payer MEDICARE, SELFPAY | END 2024-12-31 23:59 | disposition home or self-care (01) | LOC: RPT 08:58 | PROVIDERS: ATTENDING PHYSICIAN Physician Assistant Medical; FAMILY PHYSICIAN Internal Medicine | DX: M48.02 Spinal stenosis, cervical region (principal); M54.2 Cervicalgia; Z73.6 Limitation of activities due to disability; G89.29 Other chronic pain; R20.2 Paresthesia of skin; R20.0 Anesthesia of skin; R42 Dizziness and giddiness | CPT/HCPCS: 97010; 97110; 97112; 97140; 97162 ==

== ENCOUNTER 2025-01-22 09:46 | Outpatient (RCR) | payer MEDICARE, SELFPAY | END 2025-01-22 23:59 | disposition home or self-care (01) | LOC: RPT 09:46 | PROVIDERS: ATTENDING PHYSICIAN Physician Assistant Medical; FAMILY PHYSICIAN Internal Medicine | DX: M48.02 Spinal stenosis, cervical region (principal); M54.2 Cervicalgia; Z73.6 Limitation of activities due to disability; G89.29 Other chronic pain; R20.2 Paresthesia of skin; R20.0 Anesthesia of skin; R42 Dizziness and giddiness | CPT/HCPCS: 97010; 97110; 97112; 97140 ==

== ENCOUNTER → 2025-03-10 08:28 | Outpatient (REF) | payer MEDICARE, SELFPAY ==
[2025-03-10 09:52] LABS: Blood Urea Nitrogen 30 mg/dl (9-20); Calcium 9.3 mg/dl (8.4-10.2); Carbon Dioxide 26 mmol/L (22-30); Chloride 107 mmol/L (98-107); Glucose 102 mg/dl (70-99); Potassium 4.1 mmol/L (3.5-5.1); Sodium 139 mmol/L (135-145); eGFR > 60.00
== END ==
LOC: REG 08:28
PROVIDERS: ATTENDING PHYSICIAN Internal Medicine; REFERRING PHYSICIAN Internal Medicine Hematology & Oncology
DX: Z01.812 Encounter for preprocedural laboratory examination (principal)
CPT/HCPCS: 36415; 80048